=== PATIENT | female | born 1985 | race Caucasian/White ===

== ENCOUNTER → 2017-12-12 | Outpatient (CLI) | payer OTHER | LOC: FIMAGING 11:26 | PROVIDERS: ATTEND Obstetrics & Gynecology | DX: Z36.89 Encounter for other specified antenatal screening (principal); O09.812 Supervision of pregnancy resulting from assisted reproductive technology, second trimester; Z3A.19 19 weeks gestation of pregnancy; O34.219 Maternal care for unspecified type scar from previous cesarean delivery ==

== ENCOUNTER → 2018-01-04 | Outpatient (CLI) | payer OTHER | LOC: FIMAGING 09:00 | PROVIDERS: ATTEND Obstetrics & Gynecology | DX: O09.812 Supervision of pregnancy resulting from assisted reproductive technology, second trimester (principal); O09.292 Supervision of pregnancy with other poor reproductive or obstetric history, second trimester; Z3A.22 22 weeks gestation of pregnancy ==

== ENCOUNTER 2018-02-15 12:28 | Emergency (ER) | payer OTHER ==
--- NOTE | 2018-02-15 14:04 | EDPHY ---
HPI/HX/ROS/PE/MDM Narrative: CLINICAL IMPRESSION: Lightheadedness, near syncopal episode in ASSESSMENT/PLAN: 33-year-old female, 28 week 5 day presents to the emergency department by ambulance after feeling near syncopal at home. Patient had just taken a hot shower, had not had anything to eat yet today, and admits that she has not had enough water. She was tachycardic on arrival at 1:17 a.m. But had no physical complaints. Good activity reported and heart tones measuring 155. No associated pelvic cramping or vaginal bleeding. No bacteriuria or pyuria. No reported chest pain or shortness of breath. EKG shows sinus tachycardia, reviewed with Dr. Regan. Patient refused IV, was able to tolerate several glasses of water, have snacks, ambulated to the restroom without assistance and reported feeling much better. She spoke with her primary OBGYN provider while in the ED and was able to arrange follow-up. Supportive care encouraged at home, rest, adequate hydration, and close monitoring of symptoms discussed. Warning signs return to ED sooner alignment discharge. DIFFERENTIAL DX: Differential includes but not limited to cardiac arrhythmia, dehydration, hypoglycemia, infection ED COURSE: 2:00 p.m.. Patient reassessed, feeling much better, able to ambulate to the restroom on her own without assistance or feeling syncopal. EKG shows sinus tachycardia. Repeat heart rate on my evaluation was 90. Patient was tolerating fluids well. Strong heart tones by ED RN at 155 CHIEF COMPLAINT: Near syncopal, 28 and half weeks HPI: 33-year-old female presents to the emergency department by EMS after feeling near syncopal after taking a hot 15 min shower at her home. Patient reports she laid down on the couch but felt unable to get up and called 911. She admits that she has not eaten anything today, has had some coffee but very little water. No abdominal pain, vaginal bleeding, UTI symptoms or flank pain. She did not actually fall or syncope. 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 She is reporting good activity. No chest pain or shortness of breath. She was recovering from a mild URI but states she is feeling better. No recent fevers. No chest pain or shortness of breath. PMH: Pertinent Past Surgical History: None reported Family History: Noncontributory Social History: 28 and half weeks REVIEW OF SYSTEMS: All other systems negative Constitutional: No fever, no chills, appetite change. Eyes: No discharge, vision change ENT: No sore throat, congestion, ear pain. Cardiovascular: No chest pain, no palpitations. Respiratory: No cough, no shortness of breath. Gastrointestinal: No abdominal pain, no vomiting, diarrhea. Genitourinary: No hematuria, dysuria, flank pain, pelvic pain Musculoskeletal: No back pain, joint swelling, joint pain, myalgias. Skin: No rashes, color change. Neurological: No headache, +dizziness, weakness. PHYSICAL EXAM: General Appearance: Alert, oriented, appropriate, cooperative, NAD, well hydrated, non-toxic appearing, tachycardic, no hypoxia. HEENT: Oropharynx clear is no erythema or exudates, no tonsillar hypertrophy or asymmetry. Dentition without abnormality. Eyes: PERRLA, no acute vision change, nystagmus, swelling, discharge, pain or photosensitivity. Conjunctiva pink, no pallor or injection Neck: Supple, nontender, no lymphadenopathy, no midline pain, FROM, no meningismus. Respiratory: There are no retractions, lungs are clear to auscultation. Cardiac: Regular rate and rhythm, no murmurs or gallops. Gastrointestinal: Abdomen is gravid, nontender, bowel sounds normal, no masses/ hernia, no rigidity, guarding or focal peritoneal findings. Neurological: Alert and oriented x 3, CN 2-12 grossly intact, normal gait no ataxia, DTR's intact, normal sensation and strength Skin: Warm, dry, no rashes, no nodules on palpation. Musculoskeletal: Extremities are symmetrical, full range of motion, no tenderness, deformity, swelling, or erythema. MEDICAL DECISION MAKING: Patient was seen independently. Secondary supervising physician at time of evaluation was Dr. Regan. Diagnosis: Lightheadedness, near syncopal episode and patient. New, requires workup Summary: See Assessment and Plan for summary of ED visit Clinical lab tests: Reviewed. Discussed patient with another provider: Dr. Regan Patient Progress: Improved. (LolaMac N) MDM: I did not see this patient while she was in the emergency department. However her care was discussed with the PA while the patient was in the department. I agree with treatment plan and management (Master Regan) General Time Seen by Provider: 02/15/18 12:28 Initial Vital Signs: Initial Vital Signs Temperature (C) 37.1 C 02/15/18 12:31 Heart Rate 117 H 02/15/18 12:31 Respiratory Rate 20 02/15/18 12:31 Blood Pressure 133/74 H 02/15/18 12:31 O2 Sat (%) 98 02/15/18 12:31 O2 Delivery Mode Room Air Allergies/Adverse Reactions: No Known Allergies Allergy (Unverified 11/01/13 07:08) Home Medications: Medication Instructions Recorded Docusate Sodium [Colace 100 MG (*)] 100 mg PO BID PRN #0 cap 12/01/14 Hydrocodone/APAP 5/325 [[place] 1 - 2 tab PO Q4 PRN #0 tab 12/01/14 5/325 (*)] Simethicone [Mylicon] 80 mg PO Q8 PRN #0 tabchew 12/01/14 Departure - Departure Disposition: Home, Routine, Self-Care Clinical Impression: Dehydration during Condition: Good Instructions: Dehydration (ED), Lightheadedness (ED) Additional Instructions: DISCHARGE INSTRUCTIONS FROM YOUR DOCTOR Thank you for visiting our emergency department today. Please keep in mind that discharge from the emergency department does not mean that there is nothing wrong - it simply means that we have not identified an emergency condition that requires further evaluation or treatment in the hospital. You should always plan to follow up with primary care for re-evaluation of your condition in the next 2-3 days. If you have been referred to a specialist, please call as soon as possible (today or tomorrow) to schedule your follow up appointment at the appropriate time. Your EKG was reassuring with no indication of arrhythmia. Urine does not appear to show bacteria or evidence of bladder infection. We suspect that this may have been a combination of overheating in the shower and dehydration. Please be sure to drink plenty of fluid, rest, avoid hot showers and hot tubs, eat regular meals. Please follow-up with her OBGYN as scheduled. Please call them today to inform them that your in the emergency department, and inquire if they would like to see you sooner. Please return to the emergency department for recurrent lightheadedness, fevers, abdominal pain, decrease in activity, vaginal bleeding or any other concerns. heart tones were 155 today. People present with illnesses and injuries in different ways, and it is always possible that we have missed something. You may always return for re-evaluation if symptoms worsen or if they are not improving or if you develop new/different symptoms. Again, thank you for choosing our emergency department. We hope that you feel better. Referrals: Patient,NotPresent [Unknown] - As per Instructions Tracy Duval MD [Medical Doctor] - As per Instructions
[2018-02-15 14:52] VITALS: BP 132/85
--- NOTE | 2018-02-18 09:18 | CPEKG ---
Test Reason : OPEN Blood Pressure : / mmHG Vent. Rate : 106 BPM Atrial Rate : 107 BPM P-R Int : 131 ms QRS Dur : 067 ms QT Int : 347 ms P-R-T Axes : 070 047 018 degrees QTc Int : 461 ms Sinus tachycardia Probable left atrial enlargement Confirmed by Hebert Carter ([id number]) on 02/18/2018 9:17:38 AM Referred By: Confirmed By:Hebert Carter
== END 2018-02-15 14:54 | disposition home or self-care (01) ==
LOC: EDUNIT# → SUPCPDRO 12:28
DX: O26.812 Pregnancy related exhaustion and fatigue, second trimester (principal); Z3A.28 28 weeks gestation of pregnancy